=== PATIENT | male | born 1985 | race Hispanic/Latino ===

== ENCOUNTER 2018-12-23 08:20 | Emergency (ER) | payer SELFPAY ==
--- NOTE | 2018-12-23 08:46 | RAD ---
RADIOGRAPH CHEST 2 VIEWS: DATE: 12-23-18 HISTORY: 33-year-old male with cough. FINDINGS: The lungs are clear. The cardiomediastinal silhouette and hilar shadows are normal. There is no ple ural effusion. The osseous structures appear normal. There is no pneumothorax. IMPRESSION: Normal. jn POS: CET
== END 2018-12-23 09:40 | disposition home or self-care (01) ==
LOC: ERS 08:20
DX: J20.9 Acute bronchitis, unspecified (principal)
CPT/HCPCS: 71046

== ENCOUNTER 2022-03-22 03:27 | Emergency (ER) | payer SELFPAY | END 2022-03-22 04:51 | LOC: ERS 03:27 | DX: F10.129 Alcohol abuse with intoxication, unspecified (principal) | CPT/HCPCS: 99284 ==